=== PATIENT | male | born 2000 | race Caucasian/White ===

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

== ENCOUNTER 2018-01-29 23:43 | Emergency (ER) | payer OTHER ==
[2018-01-29 23:51] VITALS: BP 119/65; RESP 18; TEMP 97.6; O2SAT 99
[2018-01-29 23:59] VITALS: PULSE 84
== END 2018-01-30 00:10 | disposition home or self-care (01) | DRG 607 ==
LOC: ED 23:43
DX: L23.9 Allergic contact dermatitis, unspecified cause (principal)
CPT/HCPCS: 99282

== ENCOUNTER 2018-08-12 03:48 | Emergency (ER) | payer OTHER ==
[2018-08-12 04:01] VITALS: BP 111/75; PULSE 103; RESP 20; TEMP 97.9; O2SAT 100
[2018-08-12] MEDS ORDERED: CODEINE/GUAIFENESIN 5 ML ML PO ONE (04:10)
[2018-08-12] MEDS ORDERED: CODEINE/GUAIFENESIN 5 ML ML ONE (04:27)
== END 2018-08-12 04:33 | disposition home or self-care (01) | DRG 153 ==
LOC: ED 03:48
DX: J06.9 Acute upper respiratory infection, unspecified (principal); R05 Cough
CPT/HCPCS: 87430; 99282; A9270-GY

== ENCOUNTER 2018-09-19 21:16 | Emergency (ER) | payer OTHER ==
[2018-09-19 21:26] VITALS: TEMP 98.6
[2018-09-19 23:07] VITALS: BP 101/61; PULSE 71; RESP 16; O2SAT 97
== END 2018-09-19 22:59 | disposition home or self-care (01) | DRG 313 ==
LOC: ED 21:16
DX: R07.89 Other chest pain (principal); R06.02 Shortness of breath
CPT/HCPCS: 36415; 71046; 85379; 93005; 99283; 99284